=== PATIENT | male | born 1980 | race African-American/Black ===

== ENCOUNTER 2017-02-19 13:51 | Emergency (ER) | payer SELFPAY ==
[~2017-02-19] VITALS: Ht 175.3 cm; Wt 82.0 kg
[~2017-02-19 13:51] MED LIST: AMOXIL400 MG/5 M PO; PHENERGAN25 MG/TAB PO; ZOFRAN4 MG/TAB PO
[2017-02-19] MEDS ORDERED: MOTRIN800 MG PO (14:23)
[2017-02-19 14:32] VITALS: BP 173/99
== END 2017-02-19 14:37 | disposition home or self-care (01) | DRG 156 ==
LOC: ED 13:51
DX: K11.5 Sialolithiasis (principal)